=== PATIENT | male | born 1985 | race Caucasian/White ===

== ENCOUNTER 2020-12-03 21:20 | Emergency (ER) | payer SELFPAY ==
[2020-12-03 21:28] VITALS: BP 123/66; PULSE 76; RESP 16; TEMP 36.5; O2SAT 99; BMI 27.8
--- NOTE | 2020-12-03 21:29 | DI.RAD.S_ITS ---
PROCEDURE: XR CHEST 1V INDICATIONS: syncope TECHNIQUE: One view of the chest was acquired. COMPARISON: None. FINDINGS: Surgical changes and devices: None. Lungs and pleura: Lungs are clear. No pleural effusions or pneumothorax. Mediastinum: Mediastinal contours appear normal. Heart size is normal. Bones and chest wall: No suspicious bony lesions. Overlying soft tissues appear unremarkable. IMPRESSION: No acute cardiopulmonary pathology. Dictated by: Carlos Esqueda M.D. on 12/03/2020 at 21:40 Approved by: Carlos Esqueda M.D. on 12/03/2020 at 21:40
[2020-12-03] MEDS: SODIUM CHLORIDE 0.9% 1,000 ML 1000 ML IV (21:39)
--- NOTE | 2020-12-03 21:43 | ED.SYNCOPE ---
HPI - Syncope General Chief Complaint: Syncope Stated Complaint: Syncope Time Seen by Provider: 12/03/20 21:28 Source: patient and EMS Mode of arrival: EMS Limitations: no limitations History of Present Illness HPI narrative: patient is a 35-year-old male who presents with multiple syncopal episodes. 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 However he was out for about 3 hours instead of 1 hour. He does admit to drinking some alcohol about 6-8 beers which is also typical for him however he was sure to drink water with it. He took breaks and had snacks however [place] he passed out while eating. He EMS reports that he passed out multiple times for them. Stating that he gets bradycardic into the 40s and hypotensive at the same time passes out briefly for 15-20 seconds. He then comes around. He says he gets lightheaded prior to the events. MD complaint: collapsed Duration of episode: 15 -: second(s) Related Data Allergies Allergy/AdvReac Type Severity Reaction Status Date / Time Penicillins Allergy Verified 12/03/20 21:36 Review of Systems Review of Systems ROS Unobtainable: All systems reviewed & are unremarkable except as noted in HPI and below Constitutional Constitutional: Denies chills, Denies fever(s), Denies lethargy and Denies weakness ENT Ears, Nose, Mouth, and Throat: Denies dizziness Cardiovascular Cardiovascular: Denies chest pain, Reports syncope, Denies edema, Denies irregular heart rhythm, Reports lightheadedness, Denies palpitations, Denies dyspnea and Denies orthopnea Respiratory Respiratory: Denies cough and Denies dyspnea Gastrointestinal Gastrointestinal: Denies abdominal pain, Denies change in bowel habits, Denies diarrhea, Denies nausea and Denies vomiting Musculoskeletal Musculoskeletal: Denies back pain and Denies joint swelling Integumentary/Breasts Skin/Breast: Denies pruritus, Denies erythema, Denies rash and Denies wounds Neurologic Neurologic: Denies confusion, Denies vertigo, Denies dizziness, Reports syncope and Denies weakness Psychiatric Psychiatric: Denies confusion Endocrine Endocrine: Denies palpitations Patient History Medical History Patient denies medical problems Social History (Reviewed 12/03/20 @ 21:45 by GENNARO Wolff Smoking Status: Current some day smoker Smoking Status: Current some day smoker tobacco type: cigars alcohol intake frequency: 3 or more drinks per day Alcohol type: beer Substance Use Type: marijuana Exam Initial Vital Signs Initial Vital Signs: Vital Signs Temperature 97.7 F 12/03/20 21:28 Pulse Rate 76 12/03/20 21:28 Respiratory Rate 16 12/03/20 21:28 Blood Pressure 123/66 12/03/20 21:28 Pulse Oximetry 99 12/03/20 21:28 GENERAL: Alert well-appearing 35-year-old male HEENT: Head atraumatic,EOMI, pupils reactive, face symmetric, [moist] mucous membranes CARDIOVASCULAR: Regular rate and rhythm without murmurs, rubs or gallops. RESPIRATORY: Breath sounds equal bilaterally, no wheezes rales or rhonchi. ABDOMEN: Soft, nontender. Normoactive bowel sounds all 4 quadrants. No guarding or rebound. EXTREMITIES: Normal range of motion, no clubbing or edema. Neurovascularly intact NEUROLOGICAL: Alert and oriented x4.Normal gait and speech. Cranial nerves II through XII grossly intact. [Good [id number], good [id number], strength equal bilaterally, no dysarthria or aphasia, sensation in tact to soft touch bilaterally, no visual changes, no facial droop] SKIN: Warm, dry, no laceration, no petechiae, no rashes or lesions. Course Orders Ordered: ED Orders 12/03/20 21:25 Complete Blood Count AUTO DIFF Stat Comprehensive Metabolic Panel Stat Ethanol (ETOH) Stat Lactate (Lactic Acid) Stat Troponin & CK Cardiac Panel Stat 12/03/20 21:28 EKG-12 Lead Stat 12/03/20 21:29 XR chest 1V Stat Discontinued Medications Sodium Chloride (Normal Saline 0.9%) 1,000 mls @ 1,000 mls/hr IV BOLUS ONE Stop: 12/03/20 22:28 Last Infusion: 12/03/20 22:21 Dose: 0 mls/hr Documented by: [email or web address] Admin: 12/03/20 21:39 Dose: 1,000 mls/hr Documented by: [email or web address] Vital Signs Vital signs: Vital Signs - 8 hr 12/03/20 21:28 12/03/20 22:34 Temperature 97.7 F Pulse Rate 76 Pulse Rate [Orthostatic Lying] 91 H Pulse Rate [Orthostatic Sitting] 89 Pulse Rate [Orthostatic Standing] 92 H Respiratory Rate 16 Blood Pressure 123/66 Blood Pressure [Orthostatic Lying] 116/68 Blood Pressure [Orthostatic Sitting] 110/64 Blood Pressure [Orthostatic Standing] 118/65 Pulse Oximetry 99 MDM - Syncope Lab Data Attestation: I reviewed the patient's lab results. Result diagrams: 12/03/20 21:25 12/03/20 21:25 Labs: Lab Results 12/03/20 12/03/20 12/03/20 Range/Units 21:25 21: 21: WBC 8.2 (4.5-11.0) X10^3/uL RBC 4.35 L (4.5-5.9) X10^6/uL Hgb 13.3 L (13.5-17.5) g/dL Hct 40.0 L (41-53) % MCV 92.0 (80-100) fL MCH 30.7 (26-34) PG MCHC 33.4 (30-36) % RDW 13.0 (11.6-14.8) % Plt Count 230 (150-400) X10^3/uL Neut % (Auto) 55.5 (50-75) % Lymph % (Auto) 36.2 (25-40) % [place] % (Auto) 5.7 (3-14) % Eos % (Auto) 2.0 (2-4) % Baso % (Auto) 0.6 (0-2) % Neut # (Auto) 4500 (3850-1323) /uL Lymph # (Auto) 3000 (7243-3263) /uL [place] # (Auto) 500 (0-900) /uL Eos # (Auto) 200 (0-450) /uL Baso # (Auto) 100 (0-100) /uL Sodium 137 (137-145) mmol/L Potassium 3.6 (3.4-5.1) mmol/L Chloride 104 (98-107) mmol/L Carbon Dioxide 24 (22-32) mmol/L BUN 16 (9-20) mg/dL Creatinine 1.02 (0.66-1.25) mg/dL Estimated GFR > 60.0 (>60) mL/min BUN/Creatinine Ratio 15.7 (6-22) Glucose 105 H (70-100) mg/dL Lactate 3.2 H (0.7-2.1) mmol/L Calcium 9.6 (8.4-10.2) mg/dL Total Bilirubin 0.4 (0.2-1.3) mg/dL AST 33 (17-59) IU/L ALT 24 (<50) IU/L Alkaline Phosphatase 36 L (38-126) U/L Total Creatine Kinase 225 H (55-170) U/L CK-MB (CK-2) 2.00 (<2.37) ng/mL CK-MB (CK-2) Rel Index 0.9 L (1.5-5.0) % Troponin I < 0.012 (0.01-0.034) ng/mL Total Protein 6.5 (6.3-8.2) g/dL Albumin 3.9 (3.5-5.0) g/dL Globulin 2.6 (1.7-4.1) g/dL Albumin/Globulin Ratio 1.5 (1.0-2.8) Ethyl Alcohol ( - 10) mg/dL 12/03/20 Range/Units 21:25 WBC (4.5-11.0) X10^3/uL RBC (4.5-5.9) X10^6/uL Hgb (13.5-17.5) g/dL Hct (41-53) % MCV (80-100) fL MCH (26-34) PG MCHC (30-36) % RDW (11.6-14.8) % Plt Count (150-400) X10^3/uL Neut % (Auto) (50-75) % Lymph % (Auto) (25-40) % [place] % (Auto) (3-14) % Eos % (Auto) (2-4) % Baso % (Auto) (0-2) % Neut # (Auto) (4692-5149) /uL Lymph # (Auto) (4754-3925) /uL [place] # (Auto) (0-900) /uL Eos # (Auto) (0-450) /uL Baso # (Auto) (0-100) /uL Sodium (137-145) mmol/L Potassium (3.4-5.1) mmol/L Chloride (98-107) mmol/L Carbon Dioxide (22-32) mmol/L BUN (9-20) mg/dL Creatinine (0.66-1.25) mg/dL Estimated GFR (>60) mL/min BUN/Creatinine Ratio (6-22) Glucose (70-100) mg/dL Lactate (0.7-2.1) mmol/L Calcium (8.4-10.2) mg/dL Total Bilirubin (0.2-1.3) mg/dL AST (17-59) IU/L ALT (<50) IU/L Alkaline Phosphatase (38-126) U/L Total Creatine Kinase (55-170) U/L CK-MB (CK-2) (<2.37) ng/mL CK-MB (CK-2) Rel Index (1.5-5.0) % Troponin I (0.01-0.034) ng/mL Total Protein (6.3-8.2) g/dL Albumin (3.5-5.0) g/dL Globulin (1.7-4.1) g/dL Albumin/Globulin Ratio (1.0-2.8) Ethyl Alcohol 28 H ( - 10) mg/dL ECG Data Attestation: I personally reviewed and interpreted this ECG as follows: Interpretation: Normal sinus rhythm rate 74 p.r. interval 152 QRS 104 QTC of [address] changes T-wave inversions MDM Narrative Medical decision making narrative: Patient also has not had any episodes of syncope or bradycardia or hypotension in the emergency department after his 1 L of fluid. This possible that he had not fully recovered before he syncopized again. However patient is getting agitated and would like to be. Blood work and EKG are reassuring vitals have been stable while in the emergency department for about the last 1 hour. He is tolerating oral fluid he has pulled out both IVs and is ready to go. He is adamant about any other drug use or alcohol use. Alcohol is actually under the legal limit Discharge Plan Departure Patient Disposition: Home Clinical Impression: Syncope Qualifiers: Syncope type: unspecified Qualified Code(s): R55 - Syncope and collapse Instructions: DI for Syncope in Adults (Fainting) Activity Restrictions/Additional Instructions: *You have been diagnosed with syncope *What to do: At this time it is unclear what caused the or syncopal episodes. It may be dehydration. Please increase water and Gatorade like substance intake. Avoid things like alcohol coffee and caffeine they will cause dehydration *Continue to take medications as directed *Follow up with your primary care provider in 2-3 days *Return to ER if you should have recurrent episodes of syncope, confusion or any new, worsening or concerning symptoms
[2020-12-03 21:48] LABS: Ethanol (ETOH) 28 mg/dL
[2020-12-03 21:49] LABS: Alanine Aminotransferase 24 IU/L (<50); Albumin 3.9 g/dL (3.5-5.0); Albumin Globulin Ratio 1.5 (1.0-2.8); Alkaline Phosphatase 36 U/L (38-126); Aspartate Aminotransferase 33 IU/L (17-59); BUN Creatinine Ratio 15.7 (6-22); Bilirubin Total 0.4 mg/dL (0.2-1.3); Blood Urea Nitrogen 16 mg/dL (9-20); Calcium 9.6 mg/dL (8.4-10.2); Carbon Dioxide 24 mmol/L (22-32); Chloride 104 mmol/L (98-107); Creatine Kinase 225 U/L (55-170); Estimated Glomerular Filt Rate > 60.0 mL/min (>60); Globulin 2.6 g/dL (1.7-4.1); Glucose 105 mg/dL (70-100); HEMOLYSIS 50 (0-50); Potassium 3.6 mmol/L (3.4-5.1); Sodium 137 mmol/L (137-145); Total Protein 6.5 g/dL (6.3-8.2)
[2020-12-03 21:51] LABS: Lactate (Lactic Acid) 3.2 mmol/L (0.7-2.1)
[2020-12-03 21:56] LABS: Add Manual Diff / Slide Review NO; Basophils Absolute Auto 100 /uL (0-100); Basophils Percent Auto 0.6 % (0-2); Eosinophils Absolute Auto 200 /uL (0-450); Hemoglobin 13.3 g/dL (13.5-17.5); Lymphocytes Absolute Auto 3000 /uL (1100-4500); Lymphocytes Percent Auto 36.2 % (25-40); Mean Corpuscular HGB Conc 33.4 % (30-36); Mean Corpuscular Hemoglobin 30.7 PG (26-34); Monocytes Absolute Auto 500 /uL (0-900); Monocytes Percent Auto 5.7 % (3-14); Neutrophils Absolute Auto 4500 /uL (1500-7000); Neutrophils Percent Auto 55.5 % (50-75); Platelet Count 230 X10^3/uL (150-400); Red Blood Cell Count 4.35 X10^6/uL (4.5-5.9); White Blood Cell Count 8.2 X10^3/uL (4.5-11.0)
[2020-12-03 22:01] LABS: Troponin I < 0.012 ng/mL (0.01-0.034)
[2020-12-03 22:05] LABS: CKMB % Relative Index 0.9 % (1.5-5.0)
--- NOTE | 2020-12-03 22:30 | PC.NURSE ---
Pt removed both of his IVs after orthostat BP check. Sites assessed and LAC wrapped to control bleeding.
[2020-12-03 22:34] VITALS: BP 110/64; BP 116/68; BP 118/65; PULSE 89; PULSE 91; PULSE 92
--- NOTE | 2020-12-03 22:39 | PC.NURSE ---
Pt refused to give urine sample I can't afford it. The more time I'm here and the more tests you do the more expensive it gets. Attempted to educate pt on importance of full workup, pt still refusing. MD [place]
[2020-12-03 23:34] LABS: Reflexed Lactate in 2 Hours Y
== END 2020-12-03 22:40 | disposition home or self-care (01) ==
PROVIDERS: Emergency Provider Emergency Medicine
DX: R55 Syncope and collapse (principal); R07.9 Chest pain, unspecified
CPT/HCPCS: 36415; 71045; 80053; 80320; 82550; 82553; 83605; 84484; 85025; 93005; 93010; 96360; 99284